=== PATIENT | female | born 1985 | race Caucasian/White ===

== ENCOUNTER 2017-03-23 15:33 | Emergency (ER) | payer OTHER ==
[2017-03-23 15:38] VITALS: BP 115/73; PULSE 78; TEMP 99; BMI 23.0
--- NOTE | 2017-03-23 16:34 | PDOC ---
History of Present Illness - History of Present Illness Initial Comments: 03/23/17 16:36 The patient is a 31 year old female, with no significant past medical history, who presents to the emergency department with who is acting as her tester wafer substrate. The patient complains of increased pain to her posterior neck, bilaterally, as well as, pain just below her left scapula. She states she woke up and was unable to stand or open her mouth without exacerbating her pain. She reportedly took Motrin (600mg TID) with mild relief the first day of her symptoms, however, denies relief since. She states she experiences intermittent pain to her head when her posterior neck pain is exacerbated. She also reports experiencing intermittent "tingling" to her left shoulder shoulder and hand. The patient denies trauma. She states she has been under a great deal of stress recently after having a failed artificial insemination procedure a month ago. 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 She denies chest pain, shortness of breath, and dizziness. She denies fever, chills, nausea, vomit, diarrhea and constipation. She denies dysuria, frequency , urgency and hematuria. Allergies: NKDA <Magdalena Zamorano - Last Filed: 03/23/17 16:36> <Fabian Wall - Last Filed: 03/23/17 16:54> - General Chief Complaint: Pain, Acute Stated Complaint: UPPER BACK PAIN Time Seen by Provider: 03/23/17 15:43 Past History <Magdalena Zamorano - Last Filed: 03/23/17 16:36> - Past Medical History COPD: No - Suicide/Smoking/Psychosocial Hx Smoking History: Never smoked Hx Alcohol Use: No Drug/Substance Use Hx: No Substance Use Type: None <Fabian Wall - Last Filed: 03/23/17 16:54> - Past Medical History Allergies/Adverse Reactions: Allergies Allergy/AdvReac Type Severity Reaction Status Date / Time aspirin Allergy Verified 03/23/17 15:34 Home Medications: Ambulatory Orders Hydroxyzine Pamoate [Vistaril -] 25 mg PO TID PRN #20 capsule 03/23/17 Review of Systems - Review of Systems Able to Perform ROS?: Yes Comments:: 03/23/17 16:37 CONSTITUTIONAL: Absent: fever, chills, diaphoresis, generalized weakness, malaise, loss of appetite HEENT: Absent: rhinorrhea, nasal congestion, throat pain, throat swelling, difficulty swallowing, mouth swelling, ear pain, eye pain, visual Changes CARDIOVASCULAR: Absent: chest pain, syncope, palpitations, irregular heart rate, lightheadedness , peripheral edema RESPIRATORY: Absent: cough, shortness of breath, dyspnea with exertion, orthopnea, wheezing, stridor, hemoptysis GASTROINTESTINAL: Absent: abdominal pain, abdominal distension, nausea, vomiting, diarrhea, constipation, melena, hematochezia GENITOURINARY: Absent: dysuria, frequency, urgency, hesitancy, hematuria, flank pain, genital pain MUSCULOSKELETAL: (+) posterior neck and upper back pain. Absent: arthralgia, joint swelling SKIN: Absent: rash, itching, pallor HEMATOLOGIC/IMMUNOLOGIC: Absent: easy bleeding, easy bruising, lymphadenopathy, frequent infections ENDOCRINE: Absent: unexplained weight gain, unexplained weight loss, heat intolerance, cold intolerance NEUROLOGIC: Absent: headache, focal weakness or paresthesia, dizziness, unsteady gait, seizure, mental status changes, bladder or bowel incontinence PSYCHIATRIC: Absent: anxiety, depression, suicidal or homicidal ideation, hallucinations <Magdalena Zamorano - Last Filed: 03/23/17 16:36> *Physical Exam - Vital Signs Last Vital Signs Temp Pulse Resp BP Pulse Ox 99.0 F 78 17 115/73 100 03/23/17 15:34 03/23/17 15:34 03/23/17 15:34 03/23/17 15:34 03/23/17 15:34 - Physical Exam Comments: 03/23/17 16:38 GENERAL: Well developed, well nourished. Awake and alert. No acute distress. HEENT: Normocephalic, atraumatic. PERRLA, EOMI. No conjunctival pallor. Sclera are non- icteric. Moist mucous membranes. Oropharynx is clear. NECK: Supple. Full ROM. No JVD. Carotid pulses 2+ and symmetric, without bruits. No thyromegaly. No lymphadenopathy. CARDIOVASCULAR: Regular rate and rhythm. No murmurs, rubs, or gallops. Distal pulses are 2+ and symmetric. PULMONARY: No evidence of respiratory distress. Lungs clear to auscultation bilaterally. No wheezing, rales or rhonchi. ABDOMINAL: Soft. Non-tender. Non-distended. No rebound or guarding. No organomegaly. Normoactive bowel sounds. MUSCULOSKELETAL (+) trigger point tenderness to the inferior left scapula without palpable deformity. Normal range of motion at all joints. No CVA tenderness. EXTREMITIES: No cyanosis. No clubbing. No edema. No calf tenderness. SKIN: Warm and dry. Normal capillary refill. No rashes. No jaundice. NEUROLOGICAL: Alert, awake, appropriate. Cranial nerves 2-12 intact. No motor deficits in the upper extremities and lower extremities. Normoreflexic in the upper and lower extremities. Normal speech. Gait is normal without ataxia. PSYCHIATRIC: Cooperative. Good eye contact. Appropriate mood and affect. <Magdalena Zamorano - Last Filed: 03/23/17 16:36> - Vital Signs Last Vital Signs Temp Pulse Resp BP Pulse Ox 99.0 F 78 17 115/73 100 03/23/17 15:34 03/23/17 15:34 03/23/17 15:34 03/23/17 15:34 03/23/17 15:34 <Fabian Wall - Last Filed: 03/23/17 16:54> Medical Decision Making - Medical Decision Making 03/23/17 16:52 Trigger point tenderness left scapula as well as muscle tightness trapezius extending to the occipital scalp. Related to stress by the patient and her . Stress reduction techniques relaxation techniques were reviewed. Massage and exercises recommended. Motrin or Aleve, Vistaril when necessary. Return if symptoms worsen or new symptoms develop. Fully ambulatory and in no pain or other distress upon discharge with her to follow-up as recommended <Fabian Wall - Last Filed: 03/23/17 16:54> *DC/Admit/Observation/Transfer - Attestations Scribe Attestion: 03/23/17 16:39 Documentation prepared by Magdalena Zamorano, acting as internist medical doctor md for Fabian Musa MD <Magdalena Zamorano - Last Filed: 03/23/17 16:36> - Discharge Dispostion Admit: No <Fabian Wall - Last Filed: 03/23/17 16:54> Diagnosis at time of Disposition: Muscle spasm of back - Discharge Dispostion Disposition: HOME Condition at time of disposition: Stable - Prescriptions Prescriptions: Hydroxyzine Pamoate [Vistaril -] 25 mg PO TID PRN #20 capsule PRN Reason: muscle spasm with stress - Patient Instructions Additional Instructions: Occasional Motrin when pain is severe. May use Aleve if Motrin ineffective. Muscle relaxant as directed Relaxation techniques, deep breathing, consider meditation/yoga/exercise for maintenance. Reduce stress. Ice massage and heat after activity. See primary physician for follow-up and monitoring.
== END 2017-03-23 16:44 | disposition home or self-care (01) ==
LOC: FER 15:33
DX: M62.830 Muscle spasm of back (principal)
CPT/HCPCS: 99282-25